=== PATIENT | female | born 1945 | race Caucasian/White ===

== ENCOUNTER 2018-09-25 10:08 | Day surgery (SDC) | payer MEDICARE, OTHER ==
[2018-09-25] MEDS: Lactated Ringers 1,000 ML IV SCH (10:38)
[2018-09-25] MEDS ORDERED: fentaNYL 100 MCG/2 ML SDV ONE (11:29)
[2018-09-25] MEDS ORDERED: Propofol 200 MG/20 ML SDV ONE (11:29)
[2018-09-25] MEDS ORDERED: Midazolam 1 MG/ML 2 ML SDV ONE (11:30)
[2018-09-25] MEDS ORDERED: Ondansetron 4 MG/2 ML SDV ONE (11:35)
[2018-09-25] MEDS ORDERED: Esmolol 100 MG/10 ML SDV ONE (11:35)
[2018-09-25] MEDS ORDERED: Ketorolac 30 MG/ML SDV ONE (11:35)
[2018-09-25] MEDS ORDERED: Lidocaine 2% 100 MG/5 ML Syringe ONE (11:35)
[2018-09-25] MEDS: Gabapentin 300 MG Cap PO ONE (11:36)
[2018-09-25] MEDS: Acetaminophen 1,000 MG in Premix Bag 1 BAG IV ONE (11:36)
[2018-09-25] MEDS: Albuterol/Ipratropium 3.0-0.5 MG/3 ML Neb Soln NEB ONE (11:36)
[2018-09-25] MEDS ORDERED: ceFAZolin 1 GM Vial IVPUSH ONE (11:49)
[2018-09-25] MEDS ORDERED: Bupivacaine 0.5%/EPINEPHrine 1:200,000 30 ML SDV ONE (11:58)
[2018-09-25] MEDS ORDERED: ceFAZolin 1 GM Vial ONE (12:02)
[2018-09-25] MEDS ORDERED: Rocuronium 50 MG/5 ML Vial ONE (12:12)
[2018-09-25] MEDS: Bupivacaine 0.5%/EPINEPHrine 1:200,000 30 ML SDV INJECT ONE ×2 (12:15)
[2018-09-25] MEDS ORDERED: Glycopyrrolate 0.2 MG/ML 2 ML SDV ONE (12:38)
[2018-09-25] MEDS: Acetaminophen/HYDROcodone 325-5 MG Tab PO PRN (15:30)
[2018-09-25 15:53] VITALS: BP 129/62
--- NOTE | 2018-09-26 08:54 | OR ---
PREOPERATIVE DIAGNOSIS: Right inguinal hernia. POSTOPERATIVE DIAGNOSIS: Right inguinal hernia. PROCEDURE PERFORMED: Repair of right inguinal hernia with mesh overlay. INDICATION: The patient is a 72-year-old female with history of a right inguinal hernia, presents for repair at this time. ESTIMATED BLOOD LOSS: Less than 5 mL. ANESTHESIA: General. COMPLICATIONS: None. FINDINGS: Hernia. PROCEDURE IN DETAIL: This was done in the operating room. General anesthetic was administered. The right groin was prepped in a sterile manner. A 15 blade used to make a transverse incision just lateral and superior to the pubic tubercle. Cautery was used to go through the subcutaneous tissue down through to the fascia. The fascia was opened with Oscar. Blunt dissection was done around the round ligament. The patient had a very large defect, transected the round ligament, inverted all of the hernial contents back inside, and then closed the fascia with 0 Vicryl [id number] sutures. After the floor was closed, I then placed the flat mesh over the floor of the canal, sutured in place with 0 Vicryl interrupted sutures with 0 Ethibond interrupted sutures medially to the pubic tubercle inferior to the lateral portion of the inguinal ligament, and superiorly to the conjoint tendon. The external oblique was closed with a running 0 Ethibond suture. Subcutaneous tissue was closed with a 3-0 Vicryl interrupted suture, skin was closed with running 4-0 Vicryl subcuticular suture and Dermabond. The patient was brought to PACU postop and will be sent home later today. BKD: 09/25/2018 12:55:59 MODL: 09/25/2018 13:37:25 /[id number]
== END 2018-09-25 17:35 | disposition home or self-care (01) ==
LOC: VM.SDS 10:08
PROVIDERS: ATTEND Surgery
DX: K40.90 Unilateral inguinal hernia, without obstruction or gangrene, not specified as recurrent (principal); I10 Essential (primary) hypertension; I25.10 Atherosclerotic heart disease of native coronary artery without angina pectoris; E11.40 Type 2 diabetes mellitus with diabetic neuropathy, unspecified; E78.00 Pure hypercholesterolemia, unspecified; J44.9 Chronic obstructive pulmonary disease, unspecified; F32.9 Major depressive disorder, single episode, unspecified; F17.210 Nicotine dependence, cigarettes, uncomplicated; G47.33 Obstructive sleep apnea (adult) (pediatric); G25.81 Restless legs syndrome; M17.10 Unilateral primary osteoarthritis, unspecified knee; Z79.84 Long term (current) use of oral hypoglycemic drugs; Z79.899 Other long term (current) drug therapy
CPT/HCPCS: 00830; 82962; A9270-GY; J0131; J0690; J1885; J2001; J2250; J2405; J2704; J3010; J3490; J7120; J7620-GY

== ENCOUNTER 2022-07-06 11:36 | Emergency (ER) | payer MEDICARE, OTHER ==
[2022-07-06 12:15] VITALS: BP 117/70; PULSE 89
[2022-07-06] MEDS: Iopamidol 612 MG/ML 50 ML SDV IVPUSH ONE (13:52)
== END 2022-07-06 14:09 | disposition home or self-care (01) ==
LOC: VM.ED 11:36
DX: Z48.03 Encounter for change or removal of drains (principal); I10 Essential (primary) hypertension; J44.9 Chronic obstructive pulmonary disease, unspecified; M19.90 Unspecified osteoarthritis, unspecified site; E11.9 Type 2 diabetes mellitus without complications; Z91.040 Latex allergy status; Z90.49 Acquired absence of other specified parts of digestive tract; Z88.8 Allergy status to other drugs, medicaments and biological substances; Z88.2 Allergy status to sulfonamides; Z91.013 Allergy to seafood; Z79.82 Long term (current) use of aspirin; Z79.84 Long term (current) use of oral hypoglycemic drugs; Z79.899 Other long term (current) drug therapy
CPT/HCPCS: 74018; 99283; 99284; Q9967

== ENCOUNTER 2023-05-09 09:30 | Day surgery (SDC) | payer MEDICARE, OTHER ==
[~2023-05-09 09:30] MED LIST: Lactated Ringers 1,000 ML IV SCH
[2023-05-09] MEDS ORDERED: Propofol 200 MG/20 ML SDV ONE (10:33)
[2023-05-09] MEDS ORDERED: fentaNYL 100 MCG/2 ML SDV ONE (10:39)
[2023-05-09 11:40] VITALS: BP 153/66; PULSE 70
== END 2023-05-09 12:37 | disposition home or self-care (01) ==
LOC: VM.SDS 09:30
PROVIDERS: ATTEND Surgery
DX: K52.9 Noninfective gastroenteritis and colitis, unspecified (principal); K21.9 Gastro-esophageal reflux disease without esophagitis; R13.10 Dysphagia, unspecified; J44.9 Chronic obstructive pulmonary disease, unspecified; E11.9 Type 2 diabetes mellitus without complications; I11.9 Hypertensive heart disease without heart failure; F32.A Depression, unspecified; E78.5 Hyperlipidemia, unspecified; I25.10 Atherosclerotic heart disease of native coronary artery without angina pectoris; G47.33 Obstructive sleep apnea (adult) (pediatric); F17.210 Nicotine dependence, cigarettes, uncomplicated; R63.4 Abnormal weight loss; Z90.49 Acquired absence of other specified parts of digestive tract; Z90.710 Acquired absence of both cervix and uterus; Z79.51 Long term (current) use of inhaled steroids; Z79.84 Long term (current) use of oral hypoglycemic drugs; Z79.82 Long term (current) use of aspirin; Z79.899 Other long term (current) drug therapy; Z80.0 Family history of malignant neoplasm of digestive organs; Z91.040 Latex allergy status; Z91.041 Radiographic dye allergy status; Z88.2 Allergy status to sulfonamides; Z91.013 Allergy to seafood; Z88.0 Allergy status to penicillin; Z88.8 Allergy status to other drugs, medicaments and biological substances
CPT/HCPCS: 00811; 45378; 82947; J2704; J3010; J7120

== ENCOUNTER 2024-12-03 07:16 | Day surgery (SDC) | payer MEDICARE, OTHER ==
[~2024-12-03 07:16] MED LIST changes: +Brimonidine 0.2% Ophth Soln 5 ML Bottle ONE; +Dexamethasone/Neomycin/Polymyxin B Ophth Oint 3.5 GM Tube ONE; -Lactated Ringers 1,000 ML IV SCH; +Lidocaine 1% 2 ML ONE; +Phenyleprhine/Ketorolac 4 ML Vial ONE; +Povidone-Iodine 5% Sterile Ophth Soln 30 ML Bottle ONE; +Proparacaine 0.5% Ophth Soln 15 ML Bottle ONE
[2024-12-03] MEDS ORDERED: fentaNYL 100 MCG/2 ML SDV ONE (07:29)
[2024-12-03] MEDS ORDERED: Midazolam 1 MG/ML 2 ML SDV ONE (07:29)
[2024-12-03] MEDS ORDERED: ceFAZolin 500 MG Vial ONE (07:29)
[2024-12-03] MEDS: Cyclopentolate 1% Opth Soln 2 ML Bottle EYERT SCH (07:35)
[2024-12-03] MEDS: Tropicamide 1% Ophth Soln 15 ML Bottle EYERT SCH (07:35)
[2024-12-03] MEDS: Phenylephrine 2.5% Ophth Soln 2 ML Bot EYERT SCH (07:35)
[2024-12-03] MEDS: Moxifloxacin 0.5% Ophth Soln 3 ML Bottle EYERT ONE ×2 (07:55→09:22)
[2024-12-03] MEDS: Balanced Salt Solution Ophth Irrig 500 ML Bottle IOCULAR ONE (09:22)
[2024-12-03] MEDS: Povidone-Iodine 5% Sterile Ophth Soln 30 ML Bottle EYERT ONE (09:22)
[2024-12-03] MEDS: Phenyleprhine/Ketorolac 4 ML Vial IO ONE (09:23)
[2024-12-03] MEDS: Lidocaine 1% PF 2 ML SDV INFILT ONE (09:23)
[2024-12-03] MEDS: Chondroitin Sulfate/Hyaluronate Sodium Ophth Inj 0.5 ML Syringe IOCULAR ONE (09:23)
[2024-12-03] MEDS: Brimonidine 0.2% Ophth Soln 5 ML Bottle EYERT ONE (09:24)
[2024-12-03] MEDS: Dexamethasone/Neomycin/Polymyxin B Ophth Oint 3.5 GM Tube EYERT ONE (09:25)
[2024-12-03 09:39] VITALS: PULSE 65
[2024-12-03] MEDS: acetaZOLAMIDE 500 MG Cap.ER PO ONE (09:41)
[2024-12-03 09:50] VITALS: BP 146/76
== END 2024-12-03 10:15 | disposition home or self-care (01) ==
LOC: VM.SDS 07:16
PROVIDERS: ATTEND Ophthalmology
DX: E11.36 Type 2 diabetes mellitus with diabetic cataract (principal); H25.813 Combined forms of age-related cataract, bilateral; J44.9 Chronic obstructive pulmonary disease, unspecified; I10 Essential (primary) hypertension; E03.9 Hypothyroidism, unspecified; E78.5 Hyperlipidemia, unspecified; Z79.84 Long term (current) use of oral hypoglycemic drugs; Z79.899 Other long term (current) drug therapy; F17.210 Nicotine dependence, cigarettes, uncomplicated
CPT/HCPCS: 00142; 82947; 99100; A9270-GY; J0690; J1097; J2003; J2250; J3010; J3490; V2632